=== PATIENT | male | born 1995 ===

== ENCOUNTER → 2023-12-28 16:03 | Outpatient (AMB) | payer BC, SELFPAY ==
--- NOTE | 2023-12-28 16:04 | A.OFFVIS_ITS ---
Intake Visit Reasons: Melena Intake Note: Dee presents as a telehealth today new patient. CC: a month ago he had blood in the stool for 5 days and along with that he has been dealing with bad bloating for years. He has had lots of gas an discomfort after eating most meals. He will randomly have soft stools that occur throughout the month. HE said that it is always a random flare up. Allergies No Known Allergies Allergy (Verified 12/28/23 16:04) HPI Comments Details: 28 y.o M who is here for GI sx as below. Reports abd bloating and flatulence x 5 years post prandially. For years had been managed with probiotics and gas-X. Also tried to modify his diet but with little relief. 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 Since then had been feeling 50% better but continues to have persistent sx. Last month also noted BRB in stool x 5 days which was self limiting. No fam hx of CRC on paternal side. Pt unaware of maternal fam hx. [facility] Surgical History (Updated 12/28/23 @ 16:04 by TERRI Owens) History of esophagogastroduodenoscopy (EGD) Review of Systems Const All systems reviewed & are unremarkable except as noted in HPI and below Physical Exam Vital Signs: video visit. NAD Able to speak in full sentences no facial assymetry Assessment & Plan Assessment & Plan (1) Change in bowel habit: Code(s): R19.4 - Change in bowel habit Category: Medical Plan Ddx include hemorrhoidal bleeding, IBD, SURS. Plan: - Labs ordered as below - Also checking H Pylori for bloating and dyspepsia - Follow up in 4 weeks to review further management Orders: Orders Complete Blood Count no Diff Today K92.1 - Melena Ferritin Today K92.1 - Melena IRON PROFILE Today K92.1 - Melena Calprotectin, Fecal Today K92.1 - Melena C Reactive Protein Today K92.1 - Melena H pylori Ag Stool Today K92.1 - Melena Coding Level of Care Code New Pt Level 4 (17118) Diagnoses Change in bowel habit R19.4
== END ==
LOC: HO.HGI 16:03
PROVIDERS: PCP Physician Assistant Medical; Visit Provider Internal Medicine
DX: R19.4 Change in bowel habit (principal)
CPT/HCPCS: 99204

== ENCOUNTER → 2023-12-28 16:03 | Outpatient (BNVA) | payer BC, SELFPAY | PROVIDERS: PCP Physician Assistant Medical; Visit Provider Internal Medicine ==